=== PATIENT | male | born 1955 | race Caucasian/White ===

== ENCOUNTER 2018-01-20 02:59 | Emergency (ER) | payer MEDICARE ==
[~2018-01-20] VITALS: Ht 170.2 cm; Wt 65.9 kg
[2018-01-20 03:04] VITALS: Ht 170.2 cm; Wt 65.9 kg
[2018-01-20] MEDS ORDERED: LISINOPRIL2.5 MG (03:09)
[2018-01-20] MEDS ORDERED: LIPITOR20 MG (03:09)
[2018-01-20] MEDS ORDERED: RIOMET500 MG/5 M (03:09)
[2018-01-20] MEDS ORDERED: CLEOCIN HCL300 MG PO (03:16)
[2018-01-20 03:44] VITALS: BP 160/99
== END 2018-01-20 03:52 | disposition home or self-care (01) ==
LOC: D.ER 02:59
DX: L02.414 Cutaneous abscess of left upper limb (principal); E11.9 Type 2 diabetes mellitus without complications; F17.200 Nicotine dependence, unspecified, uncomplicated

== ENCOUNTER → 2019-12-07 09:11 | Outpatient (CLI) | payer MEDICARE ==
[2018-01-20 03:04] VITALS: BMI 22.7
[~2019-12-07 09:11] MED LIST: CLEOCIN HCL300 MG PO; LIPITOR20 MG; LISINOPRIL2.5 MG; RIOMET500 MG/5 M
== END | disposition home or self-care (01) ==
LOC: D.US 12-03 09:30
PROVIDERS: ATTEND Emergency Medicine
DX: R94.5 Abnormal results of liver function studies (principal); Z86.19 Personal history of other infectious and parasitic diseases